=== PATIENT | male | born 1995 | race Caucasian/White ===

== ENCOUNTER 2016-12-03 10:50 | Emergency (ER) | payer SELFPAY ==
[2016-12-03] MEDS ORDERED: Ondansetron 4 MG/2 ML SDV IVPUSH ONE (11:04)
[2016-12-03] MEDS ORDERED: Sodium Chloride 0.9% 2.5 ML Syringe FLUSH PRN (11:04)
[2016-12-03] MEDS ORDERED: Sodium Chloride 0.9% 10 ML Syringe FLUSH PRN (11:04)
[2016-12-03] MEDS ORDERED: Morphine 2 MG/ML Syringe IVPUSH ONE (11:04)
--- NOTE | 2016-12-03 11:43 | EDM.PDOC ---
ED HPI GENERAL MEDICAL PROBLEM - General Chief Complaint: Genitourinary Problem Stated Complaint: SILVIO Time Seen by Provider: 12/03/16 10:57 - History of Present Illness INITIAL COMMENTS - FREE TEXT/NARRATIVE: History of present illness: []Patient has had a testicular pain started 2 hours prior to arrival. He cannot distinguish if it is left or right. Is not had this pain in the past and denies any trauma. No difficulty urinating, no fevers, no chills, nausea, vomiting. Review of systems: As per history of present illness and below otherwise all systems reviewed and negative. Past medical history: As per history of present illness and as reviewed below otherwise noncontributory. Surgical history: As per history of present illness and as reviewed below otherwise noncontributory. Social history: No reported history of drug or alcohol abuse. Family history: As per history of present illness and as reviewed below otherwise noncontributory. Physical exam: General: Well developed, well nourished in NAD HEENT: Atraumatic, normocephalic, pupils reactive, negative for conjunctival pallor or scleral icterus, mucous membranes moist, throat clear, neck supple, nontender, trachea midline. Lungs: Clear to auscultation, breath sounds equal bilaterally, chest nontender. Heart: S1S2, regular, negative for clicks, rubs, or JVD. Abdomen: Soft, nondistended, nontender. Negative for masses or hepatosplenomegaly. Negative for costovertebral tenderness. Pelvis: Stable nontender. Genitourinary: Right testicle is laying transversely is tender and mildly swollen area to the left. Tender to palpation that extends to his right inguinal area. Rectal: Deferred. Extremities: Atraumatic, negative for cords or calf pain. Neurovascular unremarkable. Neuro: Awake, alert, oriented. Cranial nerves II through XII unremarkable. Cerebellum unremarkable. Motor and sensory unremarkable throughout. Exam nonfocal. Diagnostics: []Scrotal ultrasound negative for torsion pelvic CT negative for inguinal hernia and a normal appendix is noted. Therapeutics: []IV hydrated pain medicines Impression: []Right testicular pain unknown etiology Plan: []Ice, Motrin for pain follow-up with Dr. Stern Definitive disposition and diagnosis as appropriate pending reevaluation and review of above. Bilateral Groin Pain Score (Numeric/FACES): 7 - Related Data Allergies Allergy/AdvReac Type Severity Reaction Status Date / Time Penicillins Allergy Hives Verified 12/03/16 11:06 Home Meds: Home Meds . [No Known Home Meds] 12/03/16 [History] Past Medical History - Past Health History Medical/Surgical History: Denies Medical/Surgical History - Past Surgical History GI Surgical History: Reports: Hernia, Inguinal Social & Family History - Tobacco Use Smoking Status *Q: Former Smoker Used Tobacco, but Quit: No - Caffeine Use Caffeine Use: Reports: Coffee, Energy Drinks, Soda - Alcohol Use Days Per Week of Alcohol Use: 1 Number of Drinks Per Day: 10 Total Drinks Per Week: 10 - Recreational Drug Use Recreational Drug Use: No ED ROS GENERAL - Review of Systems Review Of Systems: See Below (See history of present illness) ED EXAM, RENAL/ - Physical Exam Exam: See Below (See history of present illness) Course - Vital Signs Last Recorded V/S: Last Vital Signs Temp 36.4 C 12/03/16 11:02 Pulse 118 H 12/03/16 11:02 Resp 16 12/03/16 11:02 BP 181/90 H 12/03/16 11:02 Pulse Ox 96 12/03/16 11:02 - Orders/Labs/Meds Orders: Active Orders 24 hr Category Date Time Status Sodium Chloride 0.9% [Normal Saline] 1,000 ml Med 12/03/16 14:20 Active IV .Bolus Sodium Chloride 0.9% [Saline Flush] Med 12/03/16 11:04 Active 10 ml FLUSH ASDIRECTED PRN Sodium Chloride 0.9% [Saline Flush] Med 12/03/16 11:04 Active 2.5 ml FLUSH ASDIRECTED PRN Saline Lock Insert [OM.PC] Stat Oth 12/03/16 11:04 Ordered Medication Orders Sodium Chloride (Normal Saline) 1,000 mls @ 999 mls/hr IV .Bolus ONE Stop: 12/03/16 15:20 Last Admin: 12/03/16 14:20 Dose: 999 mls/hr Sodium Chloride (Saline Flush) 10 ml FLUSH ASDIRECTED PRN PRN Reason: Keep Vein Open Last Admin: 12/03/16 13:49 Dose: 10 ml Sodium Chloride (Saline Flush) 2.5 ml FLUSH ASDIRECTED PRN PRN Reason: Keep Vein Open Last Admin: 12/03/16 13:49 Dose: 2.5 ml Labs: Laboratory Tests 12/03/16 12/03/16 12/03/16 Range/Units 11:10 11:10 14:10 WBC 7.42 (4.0-11.0) K/uL RBC 4.92 (4.50-5.90) M/uL Hgb 14.8 (13.0-17.0) g/dL Hct 42.4 (38.0-50.0) % MCV 86.2 (80.0-98.0) fL MCH 30.1 (27.0-32.0) pg MCHC 34.9 (31.0-37.0) g/dL RDW Std Deviation 43.2 (28.0-62.0) fl RDW Coeff of Su 14 (11.0-15.0) % Plt Count 318 (150-400) K/uL MPV 9.80 (7.40-12.00) fL Neut % (Auto) 55.0 (48.0-80.0) % Lymph % (Auto) 31.9 (16.0-40.0) % Noble % (Auto) 11.7 (0.0-15.0) % Eos % (Auto) 0.9 (0.0-7.0) % Baso % (Auto) 0.5 (0.0-1.5) % Neut # (Auto) 4.1 (1.4-5.7) K/uL Lymph # (Auto) 2.4 (0.6-2.4) K/uL Noble # (Auto) 0.9 H (0.0-0.8) K/uL Eos # (Auto) 0.1 (0.0-0.7) K/uL Baso # (Auto) 0.0 (0.0-0.1) K/uL Nucleated RBC % 0.0 /100WBC Nucleated RBCs # 0 K/uL Sodium 137 (136-146) mmol/L Potassium 3.3 L (3.5-5.1) mmol/L Chloride 101 (98-110) mmol/L Carbon Dioxide 23 (21-31) mmol/L BUN 15 (6.0-23.0) mg/dL Creatinine 0.9 (0.6-1.5) mg/dL Est Cr Clr Drug Dosing 144.26 mL/min Estimated GFR (MDRD) > 60.0 ml/min Glucose 114 H (60-110) mg/dL Calcium 9.4 (8.8-10.8) mg/dL Urine Color YELLOW Urine Appearance CLEAR Urine pH 6.0 (5.0-8.0) Ur Specific Vassar <= 1.005 (1.001-1.035) Urine Protein NEGATIVE (NEGATIVE) mg/dL Urine Glucose (UA) NEGATIVE (NEGATIVE) mg/dL Urine Ketones TRACE H (NEGATIVE) mg/dL Urine Occult Blood NEGATIVE (NEGATIVE) Urine Nitrite NEGATIVE (NEGATIVE) Urine Bilirubin NEGATIVE (NEGATIVE) Urine Urobilinogen 0.2 (<2.0) EU/dL Ur Leukocyte Esterase NEGATIVE (NEGATIVE) Urine RBC 0-1 (0-2/HPF) Urine WBC 0-2 (0-5/HPF) Ur Epithelial Cells RARE (NONE-FEW) Urine Bacteria RARE (NEGATIVE) Meds: Medications Generic Name Dose Route Start Last Admin Trade Name Freq PRN Reason Stop Dose Admin Sodium Chloride 1,000 mls @ 999 mls/hr 12/03/16 14:20 12/03/16 14:20 Normal Saline IV 12/03/16 15:20 999 mls/hr .Bolus ONE Administration Sodium Chloride 10 ml 12/03/16 11:04 12/03/16 13:49 Saline Flush FLUSH 10 ml ASDIRECTED PRN Administration Keep Vein Open Sodium Chloride 2.5 ml 12/03/16 11:04 12/03/16 13:49 Saline Flush FLUSH 2.5 ml ASDIRECTED PRN Administration Keep Vein Open Discontinued Medications Generic Name Dose Route Start Last Admin Trade Name Freq PRN Reason Stop Dose Admin Iopamidol 100 ml 12/03/16 13:41 12/03/16 13:42 Isovue Multipack-370 (76%) IVPUSH 12/03/16 13:42 100 ml ONETIME STA Administration Ketorolac Tromethamine 30 mg 12/03/16 12:45 12/03/16 13:48 Toradol IVPUSH 12/03/16 12:46 30 mg ONETIME ONE Administration Morphine Sulfate 4 mg 12/03/16 11:04 12/03/16 11:16 Morphine IVPUSH 12/03/16 11:05 4 mg ONETIME ONE Administration Ondansetron HCl 4 mg 12/03/16 11:04 12/03/16 11:15 Zofran IVPUSH 12/03/16 11:05 4 mg ONETIME ONE Administration Departure - Departure Time of Disposition: 14:30 Disposition: Home, Self-Care 01 Condition: Good Clinical Impression: Right testicular pain - Discharge Information Referrals: PCP,None [Primary Care Provider] - Forms: ED Department Discharge Additional Instructions: The following information is given to patients seen in the emergency department who are being discharged to home. This information is to outline your options for follow-up care. We provide all patients seen in our emergency department with a follow-up referral. The need for follow-up, as well as the timing and circumstances, are variable depending upon the specifics of your emergency department visit. If you don't have a primary care physician on staff, we will provide you with a referral. We always advise you to contact your personal physician following an emergency department visit to inform them of the circumstance of the visit and for follow-up with them and/or the need for any referrals to a consulting specialist. The emergency department will also refer you to a specialist when appropriate. This referral assures that you have the opportunity for follow-up care with a specialist. All of these measure are taken in an effort to provide you with optimal care, which includes your follow-up. Under all circumstances we always encourage you to contact your private physician who remains a resource for coordinating your care. When calling for follow-up care, please make the office aware that this follow-up is from your recent emergency room visit. If for any reason you are refused follow-up, please contact the Emergency Department at and asked to speak to the emergency department charge nurse. Ice elevate scrotum Motrin for pain follow-up with urologist, Dr. Stern or primary care physician Primary Care [address] [place] [id number] Specialty Care - Urology [address] [place] [id number] - My Orders Last 24 Hours: My Active Orders 12/03/16 11:04 Sodium Chloride 0.9% [Saline Flush] 10 ml FLUSH ASDIRECTED PRN Sodium Chloride 0.9% [Saline Flush] 2.5 ml FLUSH ASDIRECTED PRN Saline Lock Insert [OM.PC] Stat 12/03/16 14:20 Sodium Chloride 0.9% [Normal Saline] 1,000 ml IV .Bolus - Assessment/Plan Last 24 Hours: My Active Orders 12/03/16 11:04 Sodium Chloride 0.9% [Saline Flush] 10 ml FLUSH ASDIRECTED PRN Sodium Chloride 0.9% [Saline Flush] 2.5 ml FLUSH ASDIRECTED PRN Saline Lock Insert [OM.PC] Stat 12/03/16 14:20 Sodium Chloride 0.9% [Normal Saline] 1,000 ml IV .Bolus
[2016-12-03] MEDS ORDERED: Ketorolac 30 MG/ML SDV IVPUSH ONE (12:45)
--- NOTE | 2016-12-03 13:01 | US ---
EXAMINATION: Scrotal duplex ultrasound HISTORY: Pain COMPARISON: None TECHNIQUE: Grayscale, color Doppler, and spectral Doppler images obtained of the scrotum. FINDINGS: Both the right and left testicles are normal in size, contour, and echogenicity demonstrati ng normal color and spectral Doppler flow. There is a 1.5 cm right epididymal cyst otherwise the epid idymides these appear normal bilaterally. No scrotal wall thickening. No significant hydrocele or viridiana icocele. IMPRESSION: Grossly unremarkable scrotal ultrasound.
[2016-12-03 13:05] LABS: CHLORIDE,CL 101 mmol/L (98-110); SODIUM,NA 137 mmol/L (136-146)
[2016-12-03] MEDS ORDERED: Iopamidol 755 MG/ML 500 ML Multipack Bottle IVPUSH STA (13:41)
--- NOTE | 2016-12-03 14:17 | CT ---
EXAMINATION: CT pelvis with contrast HISTORY: Severe right inguinal testicular pain COMPARISON: None TECHNIQUE: Axial CT images obtained through the pelvis following the administration 100 mL of Isovue- 370 in the right antecubital fossa. Coronal and sagittal reconstructions obtained. FINDINGS: The visualized large and small bowel are normal in caliber without evidence of obstruction. Urinary bladder is normal. No bulky pelvic or inguinal lymphadenopathy. No free fluid. The appendix is noted and appears normal. No inguinal hernia identified. Small right epididymal cyst is noted. The visualized osseous structures appear normal. IMPRESSION: 1. No acute findings demonstrated. 2. No evidence of a right inguinal hernia.
[2016-12-03] MEDS ORDERED: Sodium Chloride 0.9% 1,000 ML IV ONE (14:20)
[2016-12-03 14:50] VITALS: BP 170/77
== END 2016-12-03 14:47 | disposition home or self-care (01) ==
LOC: MW.ED 10:50
DX: N50.811 Right testicular pain (principal); Z88.0 Allergy status to penicillin; Z87.891 Personal history of nicotine dependence
CPT/HCPCS: 36415; 72193; 76870; 80048; 81001; 85025; 93976; 96374; 96375; 99284; J1885; J2270; J2405; J7040; Q9967; 99283